=== PATIENT | male | born 1990 | race Caucasian/White ===

== ENCOUNTER 2017-05-21 07:32 | Emergency (ER) | payer OTHER ==
[2017-05-21] MEDS ORDERED: Ondansetron 4 MG/2 ML SDV IVPUSH ONE (07:46)
[2017-05-21] MEDS ORDERED: Ketorolac 30 MG/ML SDV IVPUSH ONE (07:46)
[2017-05-21] MEDS ORDERED: Sodium Chloride 0.9% 1,000 ML IV ONE (07:46)
--- NOTE | 2017-05-21 07:46 | EDM.PDOC ---
ED HPI GENERAL MEDICAL PROBLEM - General Chief Complaint: Abdominal Pain Stated Complaint: LEFT ABDOMINAL PAIN- PT THINKS APPENDIX BURST Time Seen by Provider: 05/21/17 07:45 Source of Information: Reports: Patient - History of Present Illness INITIAL COMMENTS - FREE TEXT/NARRATIVE: HISTORY AND PHYSICAL: History of present illness: [Patient presents with left flank pain 6-8 out of 10 radiating to the left groin with some nausea and one episode of vomiting he presents as such No fever chills sweats After prolonged stay in the ER patient had resolved ] Review of systems: As per history of present illness and below otherwise all systems reviewed and negative. Past medical history: As per history of present illness and as reviewed below otherwise noncontributory. Surgical history: As per history of present illness and as reviewed below otherwise noncontributory. Social history: No reported history of drug or alcohol abuse. Family history: As per history of present illness and as reviewed below otherwise noncontributory. Physical exam: HEENT: Atraumatic, normocephalic, pupils reactive, negative for conjunctival pallor or scleral icterus, mucous membranes moist, throat clear, neck supple, nontender, trachea midline. Lungs: Clear to auscultation, breath sounds equal bilaterally, chest nontender. Heart: S1S2, regular, negative for clicks, rubs, or JVD. Abdomen: Soft, nondistended, nontender. Negative for masses or hepatosplenomegaly. Negative for costovertebral tenderness. Pelvis: Stable nontender. Genitourinary: Deferred. Rectal: Deferred. Extremities: Atraumatic, negative for cords or calf pain. Neurovascular unremarkable. Neuro: Awake, alert, oriented. Cranial nerves II through XII unremarkable. Cerebellum unremarkable. Motor and sensory unremarkable throughout. Exam nonfocal. Diagnostics: [CBC CMP UA troponin lipase CT abdomen pelvis with and without contrast ] Therapeutics: [1 L normal saline bolus Zofran 8 mg IV Toradol 30 mg IV Flomax 0.4 mg by mouth Solu-Medrol 125 mg IV Filter and collection equipment [place] Zofran ] Impression: [Abdominal pain] resolved 2 mm left UVJ stone likely past while in the ER to the bladder Definitive disposition and diagnosis as appropriate pending reevaluation and review of above. Left Lower Abdominal Pain Score (Numeric/FACES): 3 - Related Data Allergies Allergy/AdvReac Type Severity Reaction Status Date / Time Penicillins Allergy Anaphylactic Verified 05/21/17 07:42 Shock Home Meds: Home Meds . [No Known Home Meds] 05/21/17 [History] ED ROS GENERAL - Review of Systems Review Of Systems: ROS reveals no pertinent complaints other than HPI. ED EXAM, GENERAL - Physical Exam Exam: See Below Course - Vital Signs Last Recorded V/S: Last Vital Signs Temp 98.8 F 05/21/17 09:35 Pulse 53 L 05/21/17 09:35 Resp 16 05/21/17 09:35 BP 111/60 05/21/17 09:35 Pulse Ox 98 05/21/17 09:35 - Orders/Labs/Meds Orders: Active Orders 24 hr Category Date Time Status Tamsulosin [Flomax] Med 05/21/17 10:21 Once 0.4 mg PO ONETIME ONE Medication Orders Tamsulosin HCl (Flomax) 0.4 mg PO ONETIME ONE Stop: 05/21/17 10:22 Labs: Laboratory Tests 05/21/17 05/21/17 05/21/17 Range/Units 07:46 07:54 07:54 WBC 4.89 (4.0-11.0) K/uL RBC 4.98 (4.50-5.90) M/uL Hgb 15.4 (13.0-17.0) g/dL Hct 44.0 (38.0-50.0) % MCV 88.4 (80.0-98.0) fL MCH 30.9 (27.0-32.0) pg MCHC 35.0 (31.0-37.0) g/dL RDW Std Deviation 37.7 (28.0-62.0) fl RDW Coeff of Barbara 12 (11.0-15.0) % Plt Count 185 (150-400) K/uL MPV 9.00 (7.40-12.00) fL Neut % (Auto) 43.0 L (48.0-80.0) % Lymph % (Auto) 46.0 H (16.0-40.0) % Roosevelt % (Auto) 9.4 (0.0-15.0) % Eos % (Auto) 1.2 (0.0-7.0) % Baso % (Auto) 0.4 (0.0-1.5) % Neut # (Auto) 2.1 (1.4-5.7) K/uL Lymph # (Auto) 2.3 (0.6-2.4) K/uL Roosevelt # (Auto) 0.5 (0.0-0.8) K/uL Eos # (Auto) 0.1 (0.0-0.7) K/uL Baso # (Auto) 0.0 (0.0-0.1) K/uL Nucleated RBC % 0.0 /100WBC Nucleated RBCs # 0 K/uL Lactate (0.20-2.00) mmol/L Sodium 142 (136-146) mmol/L Potassium 3.8 (3.5-5.1) mmol/L Chloride 110 (98-110) mmol/L Carbon Dioxide 22 (21-31) mmol/L BUN 17 (6.0-23.0) mg/dL Creatinine 0.9 (0.6-1.5) mg/dL Est Cr Clr Drug Dosing 130.15 mL/min Estimated GFR (MDRD) > 60.0 ml/min Glucose 132 H (60-110) mg/dL Calcium 9.2 (8.8-10.8) mg/dL Total Bilirubin 0.4 (0.1-1.5) mg/dL AST 28 (5-40) IU/L ALT 43 (8-54) IU/L Alkaline Phosphatase 99 (40-150) Troponin I < 0.10 (0.0-0.29) NG/ML Total Protein 7.1 (6.0-8.0) g/dL Albumin 4.5 (3.5-5.0) g/dL Globulin 2.6 (2.0-3.5) g/dL Albumin/Globulin Ratio 1.7 (1.3-2.8) Lipase 20 (7-80) U/L Urine Color YELLOW Urine Appearance CLOUDY Urine pH 5.5 (5.0-8.0) Ur Specific [place] >= 1.030 (1.001-1.035) Urine Protein TRACE (NEGATIVE) mg/dL Urine Glucose (UA) NEGATIVE (NEGATIVE) mg/dL Urine Ketones NEGATIVE (NEGATIVE) mg/dL Urine Occult Blood LARGE H (NEGATIVE) Urine Nitrite NEGATIVE (NEGATIVE) Urine Bilirubin NEGATIVE (NEGATIVE) Urine Urobilinogen 0.2 (<2.0) EU/dL Ur Leukocyte Esterase NEGATIVE (NEGATIVE) Urine RBC TOO NUMBEROUS TO CT (0-2/HPF) Urine WBC 0-2 (0-5/HPF) Ur Epithelial Cells OCCASIONAL (NONE-FEW) Urine Bacteria 2+ H (NEGATIVE) Urine Mucus MODERATE (NONE-MOD) 05/21/17 Range/Units 08:36 WBC (4.0-11.0) K/uL RBC (4.50-5.90) M/uL Hgb (13.0-17.0) g/dL Hct (38.0-50.0) % MCV (80.0-98.0) fL MCH (27.0-32.0) pg MCHC (31.0-37.0) g/dL RDW Std Deviation (28.0-62.0) fl RDW Coeff of Barbara (11.0-15.0) % Plt Count (150-400) K/uL MPV (7.40-12.00) fL Neut % (Auto) (48.0-80.0) % Lymph % (Auto) (16.0-40.0) % Roosevelt % (Auto) (0.0-15.0) % Eos % (Auto) (0.0-7.0) % Baso % (Auto) (0.0-1.5) % Neut # (Auto) (1.4-5.7) K/uL Lymph # (Auto) (0.6-2.4) K/uL [place] # (Auto) (0.0-0.8) K/uL Eos # (Auto) (0.0-0.7) K/uL Baso # (Auto) (0.0-0.1) K/uL Nucleated RBC % /100WBC Nucleated RBCs # K/uL Lactate 1.1 (0.20-2.00) mmol/L Sodium (136-146) mmol/L Potassium (3.5-5.1) mmol/L Chloride (98-110) mmol/L Carbon Dioxide (21-31) mmol/L BUN (6.0-23.0) mg/dL Creatinine (0.6-1.5) mg/dL Est Cr Clr Drug Dosing mL/min Estimated GFR (MDRD) ml/min Glucose (60-110) mg/dL Calcium (8.8-10.8) mg/dL Total Bilirubin (0.1-1.5) mg/dL AST (5-40) IU/L ALT (8-54) IU/L Alkaline Phosphatase (40-150) Troponin I (0.0-0.29) NG/ML Total Protein (6.0-8.0) g/dL Albumin (3.5-5.0) g/dL Globulin (2.0-3.5) g/dL Albumin/Globulin Ratio (1.3-2.8) Lipase (7-80) U/L Urine Color Urine Appearance Urine pH (5.0-8.0) Ur Specific [place] (1.001-1.035) Urine Protein (NEGATIVE) mg/dL Urine Glucose (UA) (NEGATIVE) mg/dL Urine Ketones (NEGATIVE) mg/dL Urine Occult Blood (NEGATIVE) Urine Nitrite (NEGATIVE) Urine Bilirubin (NEGATIVE) Urine Urobilinogen (<2.0) EU/dL Ur Leukocyte Esterase (NEGATIVE) Urine RBC (0-2/HPF) Urine WBC (0-5/HPF) Ur Epithelial Cells (NONE-FEW) Urine Bacteria (NEGATIVE) Urine Mucus (NONE-MOD) Meds: Medications Generic Name Dose Route Start Last Admin Trade Name Freq PRN Reason Stop Dose Admin Tamsulosin HCl 0.4 mg 05/21/17 10:21 Flomax PO 05/21/17 10:22 ONETIME ONE Discontinued Medications Generic Name Dose Route Start Last Admin Trade Name Freq PRN Reason Stop Dose Admin Sodium Chloride 1,000 mls @ 999 mls/hr 05/21/17 07:46 05/21/17 07:59 Normal Saline IV 05/21/17 08:46 999 mls/hr STAT ONE Administration Iopamidol 100 ml 05/21/17 09:02 05/21/17 09:02 Isovue Multipack-370 (76%) IVPUSH 05/21/17 09:03 100 ml ONETIME STA Administration Ketorolac Tromethamine 30 mg 05/21/17 07:46 05/21/17 07:59 Toradol IVPUSH 05/21/17 07:47 30 mg ONETIME ONE Administration Ondansetron HCl 8 mg 05/21/17 07:46 05/21/17 07:58 Zofran IVPUSH 05/21/17 07:47 8 mg ONETIME ONE Administration Departure - Departure Time of Disposition: 10:23 Disposition: Home, Self-Care 01 Condition: Good Clinical Impression: Ureteral stone - Discharge Information Referrals: PCP,None [Primary Care Provider] - Forms: ED Department Discharge Additional Instructions: Ureteral stone collection equipment Return stone to primary care or urology for pathology examination Occasions as prescribed as needed Likely the stone has passed to the bladder at this time his pain has resolved Return if symptoms persist or worsen or if fever vomiting chills sweats should this develop [facility] [address] [place] [id number] [facility] - Neurology Professional [facility] [address] [place] [address], [address] [place] [address] The following information is given to patients seen in the emergency department who are being discharged to home. This information is to outline your options for follow-up care. We provide all patients seen in our emergency department with a follow-up referral. The need for follow-up, as well as the timing and circumstances, are variable depending upon the specifics of your emergency department visit. If you don't have a primary care physician on staff, we will provide you with a referral. We always advise you to contact your personal physician following an emergency department visit to inform them of the circumstance of the visit and for follow-up with them and/or the need for any referrals to a consulting specialist. The emergency department will also refer you to a specialist when appropriate. This referral assures that you have the opportunity for follow-up care with a specialist. All of these measure are taken in an effort to provide you with optimal care, which includes your follow-up. Under all circumstances we always encourage you to contact your private physician who remains a resource for coordinating your care. When calling for follow-up care, please make the office aware that this follow-up is from your recent emergency room visit. If for any reason you are refused follow-up, please contact the [facility] emergency department at and asked to speak to the emergency department charge nurse. - My Orders Last 24 Hours: My Active Orders 05/21/17 10:21 Tamsulosin [Flomax] 0.4 mg PO ONETIME ONE - Assessment/Plan Last 24 Hours: My Active Orders 05/21/17 10:21 Tamsulosin [Flomax] 0.4 mg PO ONETIME ONE
[2017-05-21 08:35] LABS: CHLORIDE,CL 110 mmol/L (98-110); SODIUM,NA 142 mmol/L (136-146)
[2017-05-21] MEDS ORDERED: Iopamidol 755 MG/ML 500 ML Multipack Bottle IVPUSH STA (09:02)
--- NOTE | 2017-05-21 09:40 | CT ---
CT of the abdomen and pelvis with and without contrast. HISTORY: Pain TECHNIQUE: Axial CT images were obtained of the abdomen and pelvis following administration of 100 mL of Isovue-370 in the left antecubital fossa without complication. Coronal and sagittal reconstructio ns obtained. FINDINGS: The lung bases are clear, no pleural effusion. The liver, spleen, adrenal glands, and pancreas appear normal. The gallbladder is normal. There is no bulky retroperitoneal lymphadenopathy or abdominal ascites. Tiny fat-containing umbilical hernia is noted. There is a 2 mm stone at the left ureterovesicular junction with minimal proximal hydronephrosis. The kidneys otherwise enhance and function symmetrically. The large and small bowel are normal in caliber without evidence of obstruction. No focal pericolonic inflammation or stranding. The appendix is normal. No bulky pelvic lymphadenopathy, no free pelvic f luid. No suspicious osseous abnormalities identified. IMPRESSION: 1. There is a 2 mm stone at the left ureterovesicular junction with minimal proximal hydronephrosis. 2. Otherwise no acute findings noted.
[2017-05-21] MEDS ORDERED: Tamsulosin 0.4 MG Cap.ER PO ONE (10:21)
== END 2017-05-21 10:55 | disposition home or self-care (01) ==
LOC: MW.ED 07:32
DX: N13.2 Hydronephrosis with renal and ureteral calculous obstruction (principal); Z88.0 Allergy status to penicillin
CPT/HCPCS: 36415; 74178; 80053; 81001; 83605; 83690; 84484; 85025; 96361; 96374; 96375; 99284; A9270; J1885; J2405; J7040; Q9967; 99283

== ENCOUNTER 2020-11-26 14:57 | Emergency (ER) | payer OTHER ==
[2020-11-26] MEDS ORDERED: Sodium Chloride 0.9% 1,000 ML IV ONE (19:53)
[2020-11-26] MEDS ORDERED: Acetaminophen 500 MG Tab PO ONE (19:56)
[2020-11-26] MEDS ORDERED: Ketorolac 30 MG/ML SDV IVPUSH ONE (19:56)
[2020-11-26 20:23] LABS: BLOOD UREA NITROGEN,BUN 16 mg/dL (7.0-18.0); CARBON DIOXIDE,CO2 26.2 mmol/L (21.0-32.0); CHLORIDE,CL 102 mmol/L (98-107); GLUCOSE RANDOM 109 mg/dL (74-106); LIPASE 50 U/L (73-393); POTASSIUM,K 3.9 mmol/L (3.5-5.1); SODIUM,NA 139 mmol/L (136-148)
--- NOTE | 2020-11-26 21:12 | CR ---
Indication: Chest pain and shortness of breath Technique: Chest 2 views Comparison: None Findings: Cardiovascular and mediastinum: Heart size and vasculature are normal in caliber and appearance. Lungs and pleural spaces: Lungs are clear. No sign of infiltrate or mass. No sign of pleural effusion. No pneumothorax. Bones and soft tissues: No significant findings. Impression: Negative chest. No finding to explain chest pain or shortness breath. Dictated by Cornell Cuevas MD @ 11/26/2020 9:10:08 PM (Electronically Signed)
[2020-11-26 22:17] LABS: CORONAVIRUS COVID-19 NAA POSITIVE (NEGATIVE); INFLUENZA A NAA NEGATIVE (NEGATIVE); INFLUENZA B NAA NEGATIVE (NEGATIVE)
--- NOTE | 2020-11-26 22:18 | EDM.PDOC ---
ED HPI GENERAL MEDICAL PROBLEM - General Chief Complaint: General Stated Complaint: FEVER Time Seen by Provider: 11/26/20 19:33 Source of Information: Reports: Patient History Limitations: Reports: No Limitations - History of Present Illness INITIAL COMMENTS - FREE TEXT/NARRATIVE: HISTORY AND PHYSICAL: History of present illness: Patient is a 30-year-old male who resents emergency room today secondary to fever that has been ongoing for the past 3 to 4 days. Patient states that he had his wisdom teeth extracted on Sunday and started developing a fever the next day. Patient states that since then, he has been told that the fever is not related to his teeth and was even evaluated by his primary care provider earlier today and told that his teeth were healing appropriately. Patient states that his discomfort following the wisdom tooth extraction is actually improved daily and is no longer requiring pain medications for this. Patient denies any drainage, or worsening pain of his tooth area. Patient states his most prominent symptom is fever and body aches and states that he is also having a cough. Patient states he last took 600 mg of ibuprofen at 2 PM this afternoon has not taken any additional medications for his fever. Patient states that he has had a few episodes of watery diarrhea but denies any abdominal pain. Patient denies any other symptoms or concerns. Patient denies chest pain, shortness of breath. Denies headache, neck stiff ness, change in vision, syncope, or near syncope. Denies nausea, vomiting, abdominal pain, diarrhea, constipation, or dysuria. Has not noted any blood in urine or stool. Patient has been eating and drinking appropriately. Review of systems: As per history of present illness and below otherwise all systems reviewed and negative. Past medical history: As per history of present illness and as reviewed below otherwise noncontributory. Surgical history: As per history of present illness and as reviewed below otherwise noncontributory. Social history: See social history for further information Family history: As per history of present illness and as reviewed below otherwise noncontributory. Physical exam: General: Patient is alert, oriented, and in no acute distress. Patient sitting comfortably on exam table. Patient is febrile 100.5 on exam, otherwise vitally stable and reviewed by me. HEENT: [place] teeth area consistent with recent surgical history, no edema, pus drainage from areas of recently incised teeth. Otherwise, atraumatic, normocephalic, pupils equal and reactive bilaterally, negative for conjunctival pallor or scleral icterus, mucous membranes moist, TMs normal bilaterally, throat clear, neck supple, nontender, trachea midline. No drooling or trismus noted. No meningeal signs. No hot potato voice noted. Lungs: Clear to auscultation, breath sounds equal bilaterally, chest nontender. Heart: S1S2, regular rate and rhythm without overt murmur Abdomen: Soft, nondistended, nontender. Negative for masses or hepatosplenomegaly. Negative for costovertebral tenderness. Pelvis: Stable nontender. Genitourinary: Deferred. Rectal: Deferred. Skin: Intact, warm, dry. No lesions or rashes noted. Extremities: Atraumatic, negative for cords or calf pain. Neurovascular unremarkable. Neuro: Awake, alert, oriented. Cranial nerves II through XII unremarkable. Cerebellum unremarkable. Motor and sensory unremarkable throughout. Exam nonfocal. Notes: Patient is a 30-year-old male who presents emergency room today secondary to fever, body aches, and a few episodes of watery diarrhea over the past 3 to 4 days following a with some tooth extraction the prior day. Upon arrival to the ED, patient is febrile 100.5, otherwise vitally stable and well-appearing on exam. Examination of patient's wisdom tooth extraction appear to be healing appropriately for recent removal. Will obtain basic lab work, chest x-ray, COVID-19 influenza testing, and reassess patient. CBC mild derangements unremarkable. CMP mild derangements unremarkable. Chest x-ray is negative. COVID-19 positive Upon reevaluation of patient, he remains vitally stable and comfortable throughout stay in ED. Strict return precautions thoroughly discussed with patient. Discussed importance for follow-up with a primary care provider following COVID-19 quarantine restrictions. Voices understanding and is agreeable to plan of care. Denies any further questions or concerns at this time. Diagnostics: CBC, CMP, UA, chest x-ray, Covid/influenza, lactate, blood cultures x2. Therapeutics: Normal saline, Toradol, Tylenol Prescription: None Impression: COVID-19 viral infection Plan: 1. Your COVID-19 screening is positive. That means you do have the coronavirus and are considered contagious. Your vital signs and oxygen saturation are well enough that you were able to monitor your symptoms at home. Continue to monitor for trouble breathing, new confusion or inability to arouse, bluish lips or face or any of the other symptoms we discussed -if this occurs please return to the emergency room.Continue to monitor your health at home for worsening symptoms so that you can be taken care of and treated quickly if needed. 2. Please self quarantine until 10 days have passed since your symptoms began AND you are fever free (<100.4 degrees fahrenheit) for 24 hours without the use of fever-reducing medications AND symptoms are improving. You should restrict activities outside of your home, except for getting medical care. Do not go to work, school, or public areas. Avoid using public transportation, ride-sharing, or taxis. Inform any persons that you have been in contact with since you started becoming symptomatic that you have tested positive; they should be made aware and take the appropriate steps as needed. 3. You may alternate Tylenol and ibuprofen as needed for pain and fever management. 4. The [facility] department will be calling you and following up with you. The [place] COVID 19 Hotline phone number , They are open Sunday - Sunday 7am - 7pm. Follow up with your primary care provider for re-evaluation and re-testing after quarantine and discuss when you should be seen. 5. For more specific guidelines regarding isolation/quarantine please visit this website. https://www.health.[place].gov/sites/www/files/documents/Files/MICHELLE/coronavirus/Factsh eet_for_People_With_COVID-19.pdf Definitive disposition and diagnosis as appropriate pending reevaluation and review of above. generalized Pain Score (Numeric/FACES): 5 - Related Data Allergies Allergy/AdvReac Type Severity Reaction Status Date / Time Penicillins Allergy Anaphylactic Verified 11/26/20 19:28 Shock Home Meds: Home Meds Clindamycin HCl 300 mg PO DAILY 11/26/20 [History] Past Medical History - Past Health History Medical/Surgical History: Denies Medical/Surgical History Social & Family History - Caffeine Use Caffeine Use: Reports: None ED ROS GENERAL - Review of Systems Review Of Systems: Comprehensive ROS is negative, except as noted in HPI. ED EXAM, GENERAL - Physical Exam Exam: See Below (see dictation) Course - Vital Signs Last Recorded V/S: Last Vital Signs Temp 99.1 F 11/26/20 22:35 Pulse 88 11/26/20 22:35 Resp 18 11/26/20 22:35 BP 134/82 11/26/20 22:35 Pulse Ox 97 11/26/20 22:35 - Orders/Labs/Meds Orders: Active Orders 24 hr Category Date Time Status CULTURE BLOOD [BC] Stat Lab 11/26/20 19:50 Received CULTURE BLOOD [BC] Stat Lab 11/26/20 20:09 Received Blood Culture x2 Reflex Set [OM.PC] Stat Oth 11/26/20 19:56 Ordered Labs: Laboratory Tests 11/26/20 11/26/20 11/26/20 Range/Units 19:50 19:50 19:50 WBC 5.20 (4.0-11.0) K/uL RBC 4.92 (4.50-5.90) M/uL Hgb 15.3 (13.0-17.0) g/dL Hct 43.2 (38.0-50.0) % MCV 87.8 (80.0-98.0) fL MCH 31.1 (27.0-32.0) pg MCHC 35.4 (31.0-37.0) g/dL RDW Std Deviation 39.1 (28.0-62.0) fl RDW Coeff of Barbara 12 (11.0-15.0) % Plt Count 154 (150-400) K/uL MPV 8.80 (7.40-12.00) fL Neut % (Auto) 76.0 (48.0-80.0) % Lymph % (Auto) 15.0 L (16.0-40.0) % [place] % (Auto) 8.8 (0.0-15.0) % Eos % (Auto) 0.2 (0.0-7.0) % Baso % (Auto) 0.0 (0.0-1.5) % Neut # (Auto) 4.0 (1.4-5.7) K/uL Lymph # (Auto) 0.8 (0.6-2.4) K/uL [place] # (Auto) 0.5 (0.0-0.8) K/uL Eos # (Auto) 0.0 (0.0-0.7) K/uL Baso # (Auto) 0.0 (0.0-0.1) K/uL Nucleated RBC % 0.0 /100WBC Nucleated RBCs # 0 K/uL Sodium 139 (136-148) mmol/L Potassium 3.9 (3.5-5.1) mmol/L Chloride 102 (98-107) mmol/L Carbon Dioxide 26.2 (21.0-32.0) mmol/L BUN 16 (7.0-18.0) mg/dL Creatinine 1.1 (0.8-1.3) mg/dL Est Cr Clr Drug Dosing 105.82 mL/min Estimated GFR (MDRD) > 60.0 ml/min Glucose 109 H (74-106) mg/dL Lactic Acid 1.2 (0.4-2.0) mmol/L Calcium 8.5 (8.5-10.1) mg/dL Total Bilirubin 0.3 (0.2-1.0) mg/dL AST 27 (15-37) IU/L ALT 36 (14-63) IU/L Alkaline Phosphatase 104 (46-116) U/L Total Protein 7.8 (6.4-8.2) g/dL Albumin 4.1 (3.4-5.0) g/dL Globulin 3.7 (2.6-4.0) g/dL Albumin/Globulin Ratio 1.1 (0.9-1.6) Lipase 50 L (73-393) U/L Influenza Type A RNA (NEGATIVE) Influenza Type B RNA (NEGATIVE) SARS-CoV-2 RNA (RUTH) (NEGATIVE) 11/26/20 Range/Units 21:36 WBC (4.0-11.0) K/uL RBC (4.50-5.90) M/uL Hgb (13.0-17.0) g/dL Hct (38.0-50.0) % MCV (80.0-98.0) fL MCH (27.0-32.0) pg MCHC (31.0-37.0) g/dL RDW Std Deviation (28.0-62.0) fl RDW Coeff of Barbara (11.0-15.0) % Plt Count (150-400) K/uL MPV (7.40-12.00) fL Neut % (Auto) (48.0-80.0) % Lymph % (Auto) (16.0-40.0) % [place] % (Auto) (0.0-15.0) % Eos % (Auto) (0.0-7.0) % Baso % (Auto) (0.0-1.5) % Neut # (Auto) (1.4-5.7) K/uL Lymph # (Auto) (0.6-2.4) K/uL [place] # (Auto) (0.0-0.8) K/uL Eos # (Auto) (0.0-0.7) K/uL Baso # (Auto) (0.0-0.1) K/uL Nucleated RBC % /100WBC Nucleated RBCs # K/uL Sodium (136-148) mmol/L Potassium (3.5-5.1) mmol/L Chloride (98-107) mmol/L Carbon Dioxide (21.0-32.0) mmol/L BUN (7.0-18.0) mg/dL Creatinine (0.8-1.3) mg/dL Est Cr Clr Drug Dosing mL/min Estimated GFR (MDRD) ml/min Glucose (74-106) mg/dL Lactic Acid (0.4-2.0) mmol/L Calcium (8.5-10.1) mg/dL Total Bilirubin (0.2-1.0) mg/dL AST (15-37) IU/L ALT (14-63) IU/L Alkaline Phosphatase (46-116) U/L Total Protein (6.4-8.2) g/dL Albumin (3.4-5.0) g/dL Globulin (2.6-4.0) g/dL Albumin/Globulin Ratio (0.9-1.6) Lipase (73-393) U/L Influenza Type A RNA NEGATIVE (NEGATIVE) Influenza Type B RNA NEGATIVE (NEGATIVE) SARS-CoV-2 RNA (RUTH) POSITIVE H (NEGATIVE) Meds: Medications Discontinued Medications Generic Name Dose Route Start Last Admin Trade Name Freq PRN Reason Stop Dose Admin Acetaminophen 1,000 mg 11/26/20 19:56 11/26/20 20:10 Acetaminophen 500 Mg Tab PO 11/26/20 19:57 1,000 mg ONETIME ONE Administration Sodium Chloride 1,000 mls @ 999 mls/hr 11/26/20 19:53 11/26/20 20:09 Normal Saline IV 11/26/20 20:53 999 mls/hr BOLUS ONE Administration Ketorolac Tromethamine 30 mg 11/26/20 19:56 11/26/20 20:10 Ketorolac 30 Mg/Ml Sdv IVPUSH 11/26/20 19:57 30 mg ONETIME ONE Administration Departure - Departure Time of Disposition: 22:20 Disposition: Home, Self-Care 01 Clinical Impression: COVID-19 virus infection - Discharge Information Instructions: COVID-19 Referrals: Isma Steve MD [Primary Care Provider] - Forms: ED Department Discharge Additional Instructions: The following information is given to patients seen in the emergency department who are being discharged to home. This information is to outline your options for follow-up care. We provide all patients seen in our emergency department with a follow-up referral. The need for follow-up, as well as the timing and circumstances, are variable depending upon the specifics of your emergency department visit. If you don't have a primary care physician on staff, we will provide you with a referral. We always advise you to contact your personal physician following an emergency department visit to inform them of the circumstance of the visit and for follow-up with them and/or the need for any referrals to a consulting specialist. The emergency department will also refer you to a specialist when appropriate. This referral assures that you have the opportunity for follow-up care with a specialist. All of these measure are taken in an effort to provide you with optimal care, which includes your follow-up. Under all circumstances we always encourage you to contact your private physician who remains a resource for coordinating your care. When calling for follow-up care, please make the office aware that this follow-up is from your recent emergency room visit. If for any reason you are refused follow-up, please contact the [facility] Emergency Department at and asked to speak to the emergency department charge nurse. [facility] [address] [place] [id number] [id number] 1. Your COVID-19 screening is positive. That means you do have the coronavirus and are considered contagious. Your vital signs and oxygen saturation are well enough that you were able to monitor your symptoms at home. Continue to monitor for trouble breathing, new confusion or inability to arouse, bluish lips or face or any of the other symptoms we discussed -if this occurs please return to the emergency room.Continue to monitor your health at home for worsening symptoms so that you can be taken care of and treated quickly if needed. 2. Please self quarantine until 10 days have passed since your symptoms began AND you are fever free (<100.4 degrees fahrenheit) for 24 hours without the use of fever-reducing medications AND symptoms are improving. You should restrict activities outside of your home, except for getting medical care. Do not go to work, school, or public areas. Avoid using public transportation, ride-sharing, or taxis. Inform any persons that you have been in contact with since you started becoming symptomatic that you have tested positive; they should be made aware and take the appropriate steps as needed. 3. You may alternate Tylenol and ibuprofen as needed for pain and fever management. 4. The [facility] department will be calling you and following up with you. The [place] COVID 19 Hotline phone number , They are open Sunday - Sunday 7am - 7pm. Follow up with your primary care provider for re-evaluation and re-testing after quarantine and discuss when you should be seen. 5. For more specific guidelines regarding isolation/quarantine please visit this website. https://www.health.[place].gov/sites/www/files/documents/Files/MICHELLE/coronavirus/Factsh eet_for_People_With_COVID-19.pdf - My Orders Last 24 Hours: My Active Orders 11/26/20 19:50 CULTURE BLOOD [BC] Stat 11/26/20 19:56 Blood Culture x2 Reflex Set [OM.PC] Stat 11/26/20 20:09 CULTURE BLOOD [BC] Stat - Assessment/Plan Last 24 Hours: My Active Orders 11/26/20 19:50 CULTURE BLOOD [BC] Stat 11/26/20 19:56 Blood Culture x2 Reflex Set [OM.PC] Stat 11/26/20 20:09 CULTURE BLOOD [BC] Stat
== END 2020-11-26 22:35 | disposition home or self-care (01) ==
LOC: MW.ED 14:57
DX: U07.1 COVID-19 (principal); Z88.0 Allergy status to penicillin; Z98.818 Other dental procedure status
CPT/HCPCS: 0240U; 36415; 71046; 80053; 83605; 83690; 85025; 87040; 96374; 99283; A9270; J1885; J7030

== ENCOUNTER 2023-02-12 06:34 | Day surgery (SDC) | payer OTHER ==
[~2023-02-12 06:34] MED LIST: Lactated Ringers 1,000 ML IV SCH; ceFAZolin 2 GM in Sodium Chloride 0.9% 50 ML IV ONE
[2023-02-12] MEDS ORDERED: ceFAZolin 1 GM Vial ONE (07:23)
[2023-02-12] MEDS ORDERED: Bupivacaine 0.5% 10 ML SDV ONE (07:23)
[2023-02-12] MEDS ORDERED: Famotidine 20 MG/2 ML SDV ONE (07:32)
[2023-02-12] MEDS ORDERED: Albuterol 0.083% 2.5 MG/3 ML Neb Soln NEB PRN (07:32)
[2023-02-12] MEDS ORDERED: fentaNYL 50 MCG/ML SDV IVPUSH PRN (07:32)
[2023-02-12] MEDS ORDERED: Naloxone 0.4 MG/ML SDV IVPUSH PRN (07:32)
[2023-02-12] MEDS ORDERED: droPERidol 5 MG/2 ML SDV IVPUSH PRN (07:32)
[2023-02-12] MEDS ORDERED: Morphine 2 MG/ML SYRINGE IVPUSH PRN (07:32)
[2023-02-12] MEDS ORDERED: Ondansetron 4 MG/2 ML SDV IVPUSH PRN (07:32)
[2023-02-12] MEDS ORDERED: Metoclopramide 10 MG/2 ML SDV IVPUSH PRN (07:32)
[2023-02-12] MEDS ORDERED: HYDROmorphone 1 MG/ML Syringe IVPUSH PRN (07:32)
[2023-02-12] MEDS ORDERED: Ropivacaine 0.5% 5 MG/ML 30 ML SDV ONE (07:32)
[2023-02-12] MEDS ORDERED: Propofol 200 MG/20 ML SDV ONE (07:38)
[2023-02-12] MEDS ORDERED: Morphine 10 MG/ML SDV ONE (07:38)
[2023-02-12] MEDS ORDERED: fentaNYL 250 MCG/5 ML SDV ONE (07:38)
[2023-02-12] MEDS ORDERED: ceFAZolin 2 GM Vial ONE (08:34)
[2023-02-12] MEDS ORDERED: Rocuronium Bromide 50 MG/5 ML Syringe ONE (08:34)
[2023-02-12] MEDS ORDERED: Sugammadex Sodium 200 MG/2 ML VIAL ONE (08:34)
[2023-02-12] MEDS ORDERED: Ketorolac 30 MG/ML SDV ONE (08:34)
[2023-02-12] MEDS ORDERED: Ondansetron 4 MG/2 ML SDV ONE ×2 (08:34→09:15)
[2023-02-12] MEDS ORDERED: Dexamethasone 4 MG/ML 5 ML MDV ONE (08:34)
[2023-02-12] MEDS ORDERED: Acetaminophen/HYDROcodone 325-5 MG Tab PO PRN (09:41)
[2023-02-12] MEDS ORDERED: Morphine 4 MG/ML Syringe IVPUSH PRN (09:41)
[2023-02-12] MEDS ORDERED: Lactated Ringers 1,000 ML IV SCH (09:45)
== END 2023-02-12 11:00 | disposition home or self-care (01) ==
LOC: MW.SDS 06:34
PROVIDERS: ATTEND Surgery
DX: K40.90 Unilateral inguinal hernia, without obstruction or gangrene, not specified as recurrent (principal); D17.6 Benign lipomatous neoplasm of spermatic cord; K42.9 Umbilical hernia without obstruction or gangrene; K21.9 Gastro-esophageal reflux disease without esophagitis; Z87.891 Personal history of nicotine dependence; Z79.899 Other long term (current) drug therapy; Z88.0 Allergy status to penicillin
CPT/HCPCS: 49505; 64488; C1781; J0131; J0690; J1100; J1885; J2270; J2405; J2704; J2795; J3010; J3490; J7120; S0020